=== PATIENT | female | born 1990 | race Caucasian/White ===

== ENCOUNTER 2018-11-05 07:57 | Emergency (ER) | payer BC ==
[2018-11-05 08:18] VITALS: BP 128/53
--- NOTE | 2018-11-05 09:15 | UC ---
Lower Extremity/Ankle HPI - HPI Summary HPI Summary: LAST NIGHT PATIENT ACCIDENTALLY STUBBED HER RIGHT FIFTH TOE ON A CHAIR. HAS PAIN, SWELLING AND BRUISING. DIFFICULTY AMBULATING. - History of Current Complaint Chief Complaint: UCLowerExtremity Stated Complaint: RT TOE INJURY Time Seen by Provider: 11/05/18 08:41 Hx Obtained From: Patient Hx Last Menstrual Period: 3weeks ago Onset/Duration: Sudden Onset, Lasting Hours, Still Present Severity Initially: Moderate Severity Currently: Moderate Pain Intensity: 2 Pain Scale Used: 0-10 Numeric Aggravating Factor(s): Standing, Ambulation Alleviating Factor(s): Rest, Elevation Able to Bear Weight: Yes - Allergies/Home Medications Allergies/Adverse Reactions: Allergies Allergy/AdvReac Type Severity Reaction Status Date / Time No Known Allergies Allergy Verified 11/05/18 08:11 Home Medications: Home Medications Iron 1 tab PO DAILY 11/05/18 [History Confirmed 11/05/18] Loratadine [Claritin 10 MG CAP] 10 mg PO DAILY 11/05/18 [History Confirmed 11/05] PMH/Surg Hx/FS Hx/Imm Hx Previously Healthy: Yes - Surgical History Surgical History: None - Family History Known Family History: Positive: Non-Contributory - Social History Alcohol Use: Rare Substance Use Type: None Smoking Status (MU): Never Smoked Tobacco Review of Systems All Other Systems Reviewed And Are Negative: Yes Constitutional: Positive: Negative Skin: Positive: Bruising Respiratory: Positive: Negative Cardiovascular: Positive: Negative Gastrointestinal: Positive: Negative Musculoskeletal: Positive: Arthralgia, Decreased ROM, Edema Physical Exam Triage Information Reviewed: Yes Appearance: Well-Appearing, No Pain Distress, Well-Nourished Vital Signs: Initial Vital Signs Temp 98.5 F 11/05/18 08:13 Pulse 90 11/05/18 08:13 Resp 16 11/05/18 08:13 BP 128/53 11/05/18 08:13 Pulse Ox 97 11/05/18 08:13 Vital Signs Reviewed: Yes Eyes: Positive: Conjunctiva Clear ENT: Positive: Hearing grossly normal Neck: Positive: Supple Respiratory: Positive: No respiratory distress, No accessory muscle use Cardiovascular: Positive: Pulses Normal Abdomen Description: Positive: Soft Musculoskeletal: Positive: ROM Limited @, Edema @ - RIGHT 5TH TOE, Other: - TTP RIGHT 5TH TOE Neurological: Positive: Alert Psychological: Positive: Age Appropriate Behavior Skin: Positive: Other - BRUISING RIGHT 5TH TOE Diagnostics - Radiology RIGHT 5TH TOE XRAYS Radiology Interpretation Completed By: Radiologist Summary of Radiographic Findings: NO ACUTE OSSEOUS INJURY Lower Extremity Course/Dx - Course Course Of Treatment: XRAY NEGATIVE. PT DECLINES POST OP SHOE. F/U IF NEEDED. - Differential Dx/Diagnosis Provider Diagnosis: Sprain of toe, fifth, right Discharge - Sign-Out/Discharge Documenting (check all that apply): Patient Departure All imaging exams completed and their final reports reviewed: Yes - Discharge Plan Condition: Stable Disposition: HOME Patient Education Materials: Sprain (ED), Contusion in Adults (ED) Referrals: No Primary Care Phys,NOPCP [Primary Care Provider] - Additional Instructions: XRAY TODAY NEGATIVE FOR FRACTURE OR DISLOCATION. YOUR SYMPTOMS SHOULD IMPROVE SIGNIFICANTLY OVER THE NEXT 1-2 WEEKS. IF YOU DO NOT IMPROVE EXPECTED FOLLOW- UP WITH YOUR PCP. YOU MAY BENEFIT FROM REPEAT IMAGING AT THAT TIME. OTC IBUPROFEN OR ALEVE NEEDED FOR DISCOMFORT. REST, ICE, ELEVATE. CALL THE NUMBER BELOW FOR ASSISTANCE IN ESTABLISHING WITH A PCP An additional resource available to assist in finding the appropriate physician for your health care needs is [facility] ([facility]). You may contact them by calling [phone]. - Billing Disposition and Condition Condition: STABLE Disposition: Home
== END 2018-11-05 09:23 | disposition home or self-care (01) ==
LOC: UCEAST 07:57
DX: S93.504A Unspecified sprain of right lesser toe(s), initial encounter (principal); S90.121A Contusion of right lesser toe(s) without damage to nail, initial encounter; W22.03XA Walked into furniture, initial encounter; Y92.9 Unspecified place or not applicable
CPT/HCPCS: 99201; G0463

== ENCOUNTER 2023-01-09 16:20 | Inpatient (IN) ==
[2023-01-09] MEDS ORDERED: Promethazine INJ(RESTRICTED) 25 MG/ML 1 ml VIAL IV PRN (17:38)
[2023-01-09] MEDS ORDERED: Dinoprostone 10 MG VAG.SUPP VAGINAL ONE (17:38)
[2023-01-09] MEDS ORDERED: Buffered Lidocaine 1% SYRIN 1 ml INTRADERM ONE (17:38)
[2023-01-09] MEDS ORDERED: Lactated Ringers 1000 ml BAG 1,000 ML IV ONE (17:38)
[2023-01-09 17:54] LABS: ABS Lymphocytes 1.6 10^3/uL (1.0-4.8); ABS Monocytes 0.5 10^3/uL (0.0-0.9); ABS Neutrophils 6.8 10^3/uL (1.5-7.6); ABS Nucleated RBC 0.01 10^3/ul; Eosinophil % 0.5 %; Hemoglobin 12.4 g/dL (11.5-14.3); Lymphocyte % 17.7 %; Mean Corpuscular Hemoglobin 30.1 pg (27-33); Mean Corpuscular Hgb Conc 32.6 g/dL (31-36); Mean Corpuscular Volume 92.6 fL (80-97); Mean Platelet Volume 9.8 fL (7.5-11.2); Nucleated Red Blood Cells % 0.1 /100 WBC (0.0-0.4); Platelet Count 262 10^3/uL (150-450); Red Blood Count 4.11 10^6/uL (3.63-4.92); Red Cell Distribution Width 14.6 % (12-17); White Blood Count 8.9 10^3/uL (3.8-11.8)
[2023-01-09 18:15] LABS: Albumin 3.6 g/dL (3.2-5.2); Albumin/Globulin Ratio 1.1 (1-3); Calcium 9.9 mg/dL (8.6-10.3); Creatinine, Serum 0.64 mg/dL (0.51-0.95); Globulin 3.3 g/dL (2-4); Potassium 4.3 mmol/L (3.5-5.0); Total Bilirubin 0.3 mg/dL (0.2-1.0); Total Protein 6.9 g/dL (6.4-8.9); Uric Acid 4.7 mg/dL (2.3-6.6); eGFR CKD-EPI 119.6 (>60)
[2023-01-09 19:12] LABS: Urine Benzodiazepine Screen None Detected (None Detect); Urine Opiates Screen None Detected (None Detect)
[2023-01-09] MEDS ORDERED: Calcium Carb (TUMS) 500 mg CHEW TAB PO PRN (20:34)
[2023-01-10] MEDS ORDERED: miSOPROStol 100 mcg TAB PO ONE ×2 (09:19→15:06)
[2023-01-10] MEDS ORDERED: Lidocaine 1% VIAL 10 MG/ML VIAL 30 ML ONE (19:00)
[2023-01-10] MEDS: Lactated Ringers 1000 ml BAG 1,000 ML IV SCH (21:45)
[2023-01-10] MEDS: Oxytocin in LR 20,000 MILLI.UNIT/1,000 ML BAG IV SCH (21:45)
[2023-01-11] MEDS: Lactated Ringers 1000 ml BAG 1,000 ML IV SCH ×5 (01:30→20:34)
[2023-01-11] MEDS ORDERED: OBEPIDURAL (200 ML) 200 ML EPIDURAL ONE (17:22)
[2023-01-11] MEDS ORDERED: Lidocaine 1.5% EPI 1:200,000 30 ML SDV ONE (17:22)
[2023-01-11 20:54] LABS: Urine Appearance Cloudy; Urine Bilirubin Negative (Negative); Urine Blood 3+ (Negative); Urine Color Yellow; Urine Glucose Negative (Negative); Urine Ketones 1+ (Negative); Urine Nitrite Negative (Negative); Urine Protein 1+(30 mg/dL) (Negative); Urine Specific Gravity 1.014 (1.002-1.030); Urine Urobilinogen Negative (Negative)
[2023-01-11 21:16] LABS: Urine Bacteria Absent (Absent); Urine Red Blood Cell 3+(>10/hpf) (Absent); Urine Squamous Epithelial Cell Present (Absent); Urine White Blood Cell 3+(>20/hpf) (Absent)
[2023-01-12] MEDS: Oxytocin in LR 20,000 MILLI.UNIT/1,000 ML BAG IV SCH (02:26)
[2023-01-12] MEDS ORDERED: Labetalol IV 5 MG/ML 20 ml VIAL ONE (03:03)
[2023-01-12] MEDS ORDERED: Labetalol IV 5 MG/ML 20 ml VIAL IV PUSH ONE ×2 (03:05)
[2023-01-12] MEDS ORDERED: Witch Hazel PAD JAR TOPICAL PRN (04:35)
[2023-01-12] MEDS ORDERED: Oxytocin in LR 20,000 MILLI.UNIT/1,000 ML BAG IV SCH (04:45)
[2023-01-12] MEDS ORDERED: Lactated Ringers 1000 ml BAG 1,000 ML IV SCH (05:00)
[2023-01-12] MEDS: Dibucaine 1% OINT 28.35 GM TUBE PR PRN (07:59)
[2023-01-12] MEDS ORDERED: Measles, Mumps,Rubella VACC 0.5 ML/VIAL SUBCUT ONE (11:09)
[2023-01-13 07:21] LABS: ABS Basophils 0.1 10^3/uL (0.0-0.1); ABS Eosinophils 0.1 10^3/uL (0.0-0.5); ABS Lymphocytes 1.8 10^3/uL (1.0-4.8); ABS Monocytes 0.7 10^3/uL (0.0-0.9); Eosinophil % 1.1 %; Hematocrit 28.8 % (35-45); Hemoglobin 9.9 g/dL (11.5-14.3); Lymphocyte % 18.4 %; Mean Corpuscular Hemoglobin 30.7 pg (27-33); Mean Corpuscular Hgb Conc 34.3 g/dL (31-36); Mean Corpuscular Volume 89.3 fL (80-97); Mean Platelet Volume 9.1 fL (7.5-11.2); Platelet Count 237 10^3/uL (150-450); Red Blood Count 3.22 10^6/uL (3.63-4.92); Red Cell Distribution Width 14.3 % (12-17); White Blood Count 9.6 10^3/uL (3.8-11.8)
[2023-01-13] MEDS: Dibucaine 1% OINT 28.35 GM TUBE PR PRN (12:15)
[2023-01-14 12:06] VITALS: BP 140/80
== END 2023-01-14 13:55 | disposition home or self-care (01) | DRG 560 ==
LOC: MCHOBOUT 16:20 → MCHOB 17:17
PROVIDERS: ADMIT Registered Nurse; ATTEND Registered Nurse